=== PATIENT | female | born 1970 | race African-American/Black ===

== ENCOUNTER 2018-03-07 08:16 | Outpatient (CLI) | payer OTHER ==
[~2018-03-07 08:16] MED LIST: TRAMADOL HCL-AP1 TAB PO; TUSICOF LIQUID120 ML PO
== END 2018-03-07 08:21 | disposition home or self-care (01) ==
LOC: LAB 08:16
DX: D25.1 Intramural leiomyoma of uterus (principal)

== ENCOUNTER 2018-03-11 08:15 | Inpatient (IN) | payer OTHER ==
[~2018-03-11] VITALS: Ht 152.4 cm; Wt 46.3 kg
[2018-03-22] MEDS ORDERED: CODE1TAB37 PO (13:23)
[2018-03-22] MEDS ORDERED: CIPROFLOXACIN500 MG PO (13:24)
== END 2018-03-22 14:54 | disposition home or self-care (01) | DRG 743 ==
LOC: O/R 03-19 06:26 → OB/GYN 03-19 06:26 → SURH 03-19 10:30 → OB/GYN 03-19 11:37 → SURH 03-19 11:45 → OB/GYN 03-22 14:54
PROVIDERS: Obstetrics & Gynecology
PROC: 0UT60ZZ Resection of Left Fallopian Tube, Open Approach (ICD-10-PCS; 2018-03-19)
PROC: 0JX80ZZ Transfer Abdomen Subcutaneous Tissue and Fascia, Open Approach (ICD-10-PCS; 2018-03-19)
PROC: 0TJB8ZZ Inspection of Bladder, Via Natural or Artificial Opening Endoscopic (ICD-10-PCS; 2018-03-19)
PROC: 0UT90ZZ Resection of Uterus, Open Approach (ICD-10-PCS; principal; 2018-03-19 10:30)
DX: D25.1 Intramural leiomyoma of uterus (principal); N92.0 Excessive and frequent menstruation with regular cycle; N94.5 Secondary dysmenorrhea; F41.1 Generalized anxiety disorder; G89.18 Other acute postprocedural pain; N80.0 Endometriosis of uterus; D25.0 Submucous leiomyoma of uterus; D25.2 Subserosal leiomyoma of uterus

== ENCOUNTER → 2018-03-11 | Outpatient (CLI) | payer OTHER | END | disposition home or self-care (01) | LOC: EKG 08:09 | DX: R00.2 Palpitations (principal); N92.0 Excessive and frequent menstruation with regular cycle; D25.9 Leiomyoma of uterus, unspecified ==

== ENCOUNTER 2020-04-02 18:39 | Emergency (ER) | payer OTHER ==
[~2020-04-02] VITALS: Ht 152.4 cm; Wt 45.4 kg
[~2020-04-02 18:39] MED LIST changes: +CIPROFLOXACIN500 MG PO; +CODE1TAB37 PO
== END 2020-04-02 20:16 | disposition home or self-care (01) ==
LOC: ER 18:39
DX: M62.838 Other muscle spasm (principal)

== ENCOUNTER 2023-11-14 13:31 | Emergency (ER) | payer OTHER ==
[~2023-11-14] VITALS: Ht 152.4 cm; Wt 57.6 kg
[2023-11-14 15:46] LABS: HEMATOCRIT 41.4 % (36.0-45.00); HEMOGLOBIN 13.6 g/dL (12.0-15.00); MEAN CELL VOLUME 82.2 fL (80.00-100.00); MEAN CORPUSCULAR HEMOGLOBIN 27.1 pg (27.00-32.0); PLATELET COUNT 268 K/uL (150-450); RED BLOOD COUNT 5.03 M/uL (4.00-6.00); RED CELL DISTRIBUTION WIDTH 15.3 % (11.5-14.5)
[2023-11-14 16:03] LABS: INR 0.95; PARTIAL THROMBOPLASTIN TIME 29.4 SECONDS (22.0-34.0)
[2023-11-14] MEDS ORDERED: NORFLEX100MG PO (17:59)
[2023-11-14] MEDS ORDERED: NASONEX 24HR AL17 ML NASAL (18:06)
== END 2023-11-14 18:28 | disposition home or self-care (01) ==
LOC: ER 13:31
PROVIDERS: Nurse Practitioner Family
DX: H11.31 Conjunctival hemorrhage, right eye (principal); M62.838 Other muscle spasm